=== PATIENT | female | born 1990 | race Caucasian/White ===

== ENCOUNTER 2017-05-12 11:23 | Emergency (ER) | payer OTHER ==
[~2017-05-12] VITALS: Ht 157.5 cm; Wt 74.5 kg
[2017-05-12 11:30] VITALS: Ht 157.5 cm; Wt 74.5 kg
[2017-05-12] MEDS ORDERED: ACETAMINOPHEN 325 MG TAB PO ONE (13:30)
--- NOTE | 2017-05-12 13:45 | ERD ---
ER Documentation Chief Complaint Date/Time DATE: 05/12/17 TIME: 13:38 Chief Complaint DE DIOS and neck pain X 4 months HPI Otherwise healthy 27-year-old female presents to the emergency department complaining of a headache, neck pain, and tingling in her upper extremities. Patient states that she has experienced the headache intermittently for the past 4 months. She states it first occurred when she was working out on a treadmill she suddenly felt a pop and instant pain in the back of her head. She states she did not seek medical attention until now but has continued to feel localized 7 out of 10, sharp, pain to the superior occipital region intermittently. Patient denies any nausea, vomiting, confusion, dizziness or blurred vision. 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 She states she experiences neck pain towards the end of the day and intermittent tingling in her bilateral upper extremities. She also notes occasional tingling in her left lower extremity. She denies any trauma to her head or spine. She denies saddle anesthesia or incontinence. She denies any fever chills, chest pain, or shortness of breath. She is attempted to treat her symptoms with Advil with moderate relief. ROS All systems reviewed and are negative except as per history of present illness. Allergies Allergies: Coded Allergies: No Known Allergy (Unverified , 05/12/17) PMhx/Soc Medical and Surgical Hx: pt denies Medical Hx, pt denies Surgical Hx Hx Alcohol Use: No Hx Substance Use: No Hx Tobacco Use: No Physical Exam Vitals Vital Signs Date Time Temp Pulse Resp B/P Pulse Ox O2 Delivery O2 Flow Rate FiO2 05/12/17 11:30 99.2 108 14 146/82 98 Physical Exam Const: Well-developed, well-nourished, no acute distress Head: Atraumatic, normocephalic, no ecchymosis, edema, or erythema Eyes: Normal Conjunctiva ENT: EOMs intact. PERRLA. Normal External Ears, Nose and Mouth. Neck: Full range of motion..~ No meningismus. No midline cervical spine tenderness Resp: Clear to auscultation bilaterally Cardio: Regular rate and rhythm, no murmurs Abd: Soft, non tender, non distended. Normal bowel sounds Skin: No petechiae or rashes Back: No midline or flank tenderness Ext: Full range of motion at cervical spine, bilateral shoulders, elbows, and wrist. Radial pulses 2+. Distal upper extremities warm and well perfused. Sensation intact to light touch along radial and ulnar aspects of all 5 digits bilaterally. Radial, median, and ulnar motor function intact. Good strength at shoulder elbow and wrist joints. Good mate ship strength. No cyanosis, or edema Neur: Cranial nerves II through XII intact. No pronator drift. Finger to nose intact. Awake and alert Psych: Normal Mood and Affect Results 24 hrs Current Medications Medications (Trade) Dose Ordered Sig/Favio Route PRN Reason Start Time Stop Time Status Last Admin Dose Admin Acetaminophen (Tylenol Tab) 650 mg ONCE ONCE PO 05/12/17 13:30 05/12/17 13:31 DC 05/12/17 13:17 Procedures/MDM PROCEDURE: CT brain without contrast CLINICAL INDICATION: Headache TECHNIQUE: CT of the brain without contrast was performed on a multidetector CT scanner, with multiplanar reformats. One or more of the following dose reduction techniques were used: Automated exposure control, adjustment in mA and / or kV according to patient size, use of iterative reconstructive technique. CTDIvol = 44 mGy; DLP = 630 mGy-cm. COMPARISON: None available FINDINGS: No acute intracranial hemorrhage is identified. No extra-axial fluid collection is seen. There is no mass effect. No midline shift is identified. Ventricles and sulci are within normal limits for size and configuration. The density of the brain is within normal limits. Valladares-white differentiation is preserved. Osseous structures are unremarkable. Mastoid air cells and imaged paranasal sinuses grossly clear. IMPRESSION: Unremarkable noncontrast CT of the brain. RPTAT: VV .Carlton Michelle MD, MD Date Time Electronically viewed and signed by .Carlton Michelle MD, MD on 05/12/2017 13:47 .O/ CC: PHIL LEWIS PA-C This is an otherwise healthy 27-year-old female presents the emergency department for ongoing head pain and neck pain intermittently for the past 4 months. Patient stated concern regarding her initial presentation of the head pain. She states she was exercising when she suddenly felt severe occipital region pain. Patient requested to have a CAT scan performed in the emergency department today. She is well-appearing, nontoxic and in no acute distress. Physical exam without any evidence of neurologic deficit or weakness. Vital signs reviewed and stable upon arrival. Head CT without evidence of any acute abnormality or hemorrhage. History and physical exam consistent with likely tension headache and neck strain with mild cervical radiculopathy likely due to her prolonged positioning while at work. The patient's headache is unlikely related to serious etiology. The patient does not exhibit any clinical signs or symptoms, and has no risk factors to suggest headache etiology such as subarachnoid hemorrhage, acute vertebral or carotid dissection, intracranial mass, epidural, subdural hematoma, dural venous sinus thrombosis, giant cell arteritis, or pseudotumor cerebri. Patient to continue anti-inflammatory medication, begin stretching exercises and continue physical activity. Based on patient's history of present illness and physical examination the decision was made to discharge. The patient was re-evaluated after ED treatment and stabilizing measures, and symptoms have improved. There is no evidence of life threatening injuries or illnesses at this time. On re-examination, patient resting in no distress, stable vital signs, reports feeling better and safe for discharge with outpatient follow up with PMD in 1-2 days. Patient given return precautions. Departure Diagnosis: Primary Impression: Headache Headache type: tension-type Headache chronicity pattern: acute headache Intractability: not intractable Qualified Code: G44.209 - Acute non intractable tension-type headache Additional Impressions: Neck pain Tingling of right upper extremity Tingling of left upper extremity PHIL LEWIS PA-C May 12, 2017 13:45
[2017-05-12] MEDS ORDERED: NAPR-260 PO (13:56)
[2017-05-12] MEDS ORDERED: BUTA1CAP38 PO (13:56)
[2017-05-12] MEDS ORDERED: CYCL5TAB PO (13:56)
== END 2017-05-12 14:09 | disposition home or self-care (01) ==
LOC: FTE 11:23
DX: G44.209 Tension-type headache, unspecified, not intractable (principal); M54.2 Cervicalgia; R20.2 Paresthesia of skin; R10.2 Pelvic and perineal pain
CPT/HCPCS: 70450; Z7502; Z7610

== ENCOUNTER 2017-11-06 13:17 | Emergency (ER) | END 2017-11-06 14:32 | disposition home or self-care (01) ==

== ENCOUNTER 2018-04-20 13:30 | Emergency (ER) | END 2018-04-20 17:38 | disposition home or self-care (01) ==

== ENCOUNTER 2018-06-26 11:28 | Emergency (ER) | END 2018-06-26 15:12 | disposition home or self-care (01) ==

== ENCOUNTER 2018-06-29 21:31 | Emergency (ER) | END 2018-06-30 01:44 | disposition home or self-care (01) ==

== ENCOUNTER 2018-11-24 16:10 | Emergency (ER) | payer OTHER ==
[~2018-11-24] VITALS: Ht 154.9 cm; Wt 76.0 kg
[~2018-11-24 16:10] MED LIST: AZIT250T PO; BUTA1CAP38 PO; CYCL5TAB PO; IBUP-1542 PO; MED4DP PO; NAPR-985 PO; OMEP40CA6 PO; PROM6.2515 PO; RANI150T35 PO
[2018-11-24 16:24] VITALS: BP 142/82; PULSE 85; RESP 18; Ht 154.9 cm; Wt 76.0 kg
[2018-11-24] MEDS ORDERED: MED4DP PO (17:44)
[2018-11-24] MEDS ORDERED: NAPR-985 PO (17:44)
--- NOTE | 2018-11-24 18:27 | ERD ---
ER Documentation Chief Complaint Chief Complaint CP WITH LEFT ARM PAIN X 2 WEEKS, DENIES SOB/DIZZINESS HPI 28 yr old female complaining of chest wall pain and left arm pain times 2 weeks. She states that it is a burning type sensation that runs down her shoulder. She occasionally has some muscle spasms. She has not taken medicine for symptoms. LNMP November 04. Medical history of GERD and anxiety. Surgical history denies. No shortness of breath. NKDA. Social history denies ROS All systems reviewed and are negative except as per history of present illness. Medications Home Meds Active Scripts Naproxen* (Naprosyn*) 500 Mg Tablet, 500 MG PO BID PRN for PAIN AND/OR INFLAMMATION, #30 TAB Prov:JINA MURPHY PA-C 11/24/18 Methylprednisolone* (Medrol* DOSE PACK) 4 Mg/Dose-Pack Tab.ds.pk, 4 MG PO . DIRECTED, #1 PACKET Prov:JINA MURPHY PA-C 11/24/18 Ranitidine Hcl* (Zantac*) 150 Mg Tablet, 150 MG PO BID PRN for EPIGASTRIC PAIN, #30 TAB Prov:CASIE DEGROOT MD 06/26/18 Omeprazole* (Omeprazole*) 40 Mg Capsule.dr, 40 MG PO DAILY, #30 CAP Prov:CASIE DEGROOT MD 06/26/18 Ibuprofen* (Motrin*) 600 Mg Tab, 600 MG PO Q6, #30 TAB Prov:JINA MURPHY PA-C 04/20/18 Promethazine Hcl* (Promethazine Hcl* Syrup) 6.25 Mg/5 Ml Syrup, 12.5 MG PO Q6H PRN for COUGH, #120 ML Prov:SHANTI WATTS 11/06/17 Methylprednisolone* (Medrol* DOSE PACK) 4 Mg/Dose-Pack Tab.ds.pk, 4 MG PO . DIRECTED for 6 Days, PACKET Prov:SHANTI WATTS 11/06/17 Azithromycin* (Zithromax*) 250 Mg Tablet, 250 MG PO .ZPACK DIRECTED, #6 TAB TAKE 500 MG (2 TABS) THE FIRST DAY THEN 250 MG (1 TAB) DAYS 2-5 Prov:SHANTI WATTS 11/06/17 Cyclobenzaprine Hcl* (Cyclobenzaprine Hcl*) 5 Mg Tablet, 5 MG PO Q8H PRN for PAIN, #20 TAB Prov:PHIL LEWISGlenda SHERMAN 05/12/17 Naproxen* (Naprosyn*) 500 Mg Tablet, 500 MG PO BID for 7 Days, TAB Prov:PHIL LEWISGlenda SHERMAN 05/12/17 Eqmegvudcv-Ljotlkzaxlcij-Chkvdeyi* (Fioricet*) 50-300-40 Mg Capsule, 1 CAP PO Q4H PRN for HEADACHE for 10 Days, CAP Prov:PHIL LEWISGlenda SHERMAN 05/12/17 Allergies Allergies: Coded Allergies: No Known Allergy (Unverified , 05/12/17) PMhx/Soc History of Surgery: No Hx Miscellaneous Medical Probl: Yes (GERD ANEMIA) Hx Alcohol Use: No Hx Substance Use: No Hx Tobacco Use: No Smoking Status: Never smoker FmHx Family History: No diabetes, No coronary disease, No other Physical Exam Vitals Vital Signs Date Temp Pulse Resp B/P (MAP) Pulse Ox O2 O2 Flow FiO2 Time Delivery Rate 11/24/18 98.8 85 18 142/82 100 16:24 (102) Physical Exam GENERAL: The patient is well-appearing, well-nourished, in no acute distress HEENT: Atraumatic. Conjunctivae are pink. Pupils equal, round, and reactive to light. There is no scleral icterus. Tympanic membranes clear bilaterally. Oropharynx clear. No nystagmus or photophobia. NECK: C-spine is soft and supple. There is no meningismus. There is no cervical lymphadenopathy. CHEST: Clear to auscultation bilaterally. There are no rales, wheezes or rhonchi. HEART: Regular rate and rhythm. No murmurs, clicks, rubs or gallops. No S3 or S4. EXTREMITIES: Equal pulses bilaterally. There is no peripheral clubbing, cyanosis or edema. No focal swelling or erythema. Full range of motion. Grossly neurovascularly intact. NEUROLOGIC: Alert and oriented. Cranial nerves II through XII intact. Motor strength in all 4 extremities with 5 out of 5 strength. Sensation grossly intact. SKIN: There is no apparent rash or petechiae. The skin is warm and dry. Procedures/MDM DIAGNOSTIC IMAGING REPORT Patient: GLORIA CHRIS : 1990 Age: 28 Sex: F MR #: [id number] DOS: 11/24/18 1702 Ordering MD: FRANCESCA MURPHY PA-C Location: [facility] Room/Bed: PROCEDURE: XR Chest. CLINICAL INDICATION: chest pain TECHNIQUE: Single frontal view of the chest was obtained COMPARISON: 04/20/2018 FINDINGS: The heart and mediastinum are within normal limits. The lungs are clear. There is no pleural effusion or pneumothorax. RPTAT: AA IMPRESSION: No acute disease. EKG: Rate/Rhythm: 70 bpm Normal Sinus Rhythm QRS, ST, T-waves: No changes consistent w/ acute ischemia Impression: No evidence of ischemia or arrhythmia MDM: 28-year-old female presenting with chest wall pain. Patient's exam is non- concerning and vitals are stable. I have low suspicion for cardiac or pulmonary emergency. Patient may be experiencing some nerve impingement and will be discharged with supportive medications. Patient is told if symptoms change or worsen to return immediately to the ER. Patient is recommended to follow-up with primary care. All questions answered discharge. Departure Diagnosis: Primary Impression: Chest pain Condition: Stable Patient Instructions: Chest Pain, Uncertain Cause Referrals: [facility] (PCP) Additional Instructions: FOLLOW UP WITH YOUR PRIMARY CARE PHYSICIAN TOMORROW.Return to this facility if you are not improving as expected. JINA MURPHY PA-C Nov 24, 2018 18:26
== END 2018-11-24 18:00 | disposition home or self-care (01) ==
LOC: FTE 16:10
DX: R07.89 Other chest pain (principal)
CPT/HCPCS: 71045; 93005; Z7502

== ENCOUNTER 2019-01-20 09:02 | Day surgery (SDC) | payer OTHER ==
[~2019-01-20] VITALS: Ht 157.5 cm; Wt 75.7 kg
[2019-01-20] MEDS ORDERED: IRON (09:58)
[2019-01-20] MEDS ORDERED: VITAMIN D (09:58)
[2019-01-20] MEDS ORDERED: LIDOCAINE 4% SOLUTION 50 ML BTL ONE (10:29)
[2019-01-20 10:30] VITALS: Ht 157.5 cm; Wt 75.7 kg
[2019-01-20 10:31] VITALS: BP 102/65; PULSE 90; RESP 20
[2019-01-20 11:05] VITALS: BP 104/67; PULSE 74; RESP 18
[2019-01-20 11:10] VITALS: BP 104/61; PULSE 78; RESP 18
[2019-01-20] MEDS ORDERED: MIDAZOLAM 1 MG/ML 2 ML INJ ONE ×2 (11:13)
[2019-01-20] MEDS ORDERED: FENTAnyl 50 MCG/ML VIAL ONE (11:13)
[2019-01-20 11:28] VITALS: BP 112/74; PULSE 73; RESP 20
== END 2019-01-20 12:46 | disposition home or self-care (01) ==
LOC: GIL 09:02
PROVIDERS: ATTEND Internal Medicine Gastroenterology
DX: K21.0 Gastro-esophageal reflux disease with esophagitis (principal); K64.0 First degree hemorrhoids; K44.9 Diaphragmatic hernia without obstruction or gangrene
CPT/HCPCS: 43239; 45378; 84703; 88305; 88312; 88313; J2250; J3010; Z7610

== ENCOUNTER 2019-01-27 10:28 | Emergency (ER) | payer OTHER ==
[~2019-01-27] VITALS: Wt 89.0 kg
[~2019-01-27 10:28] MED LIST changes: -AZIT250T PO; -BUTA1CAP38 PO; -IBUP-1542 PO; +IRON; -MED4DP PO; -PROM6.2515 PO; +VITAMIN D
--- NOTE | 2019-01-27 12:03 | ERD ---
ER Documentation Chief Complaint Chief Complaint COUGH,CHEST CONGESTION HPI 29-year-old female presents with complaint of cough for the past month. States that she went to a clinic in the beginning of January and they diagnosed with bronchitis and gave her prednisone and an inhaler. However she states that the cough is still bothering her. Denies wheezing, chest pain, shortness of breath, respiratory distress, stridor, fevers, hemoptysis. History of hiatal hernia. She denies allergies. ROS All systems reviewed and are negative except as per history of present illness. Medications Home Meds Active Scripts Dextromethorphan Hb-Promethazine Hcl* (Promethazine DM* Syrup) 473 Ml Syrup, 5 ML PO Q6 PRN for COUGH, #4 OZ Prov:VILLA DO 01/27/19 Ranitidine Hcl* (Zantac*) 150 Mg Tablet, 150 MG PO BID PRN for EPIGASTRIC PAIN, #30 TAB Prov:CASIE DEGROOT MD 06/26/18 Omeprazole* (Omeprazole*) 40 Mg Capsule.dr, 40 MG PO DAILY, #30 CAP Prov:CASIE DEGROOT MD 06/26/18 Cyclobenzaprine Hcl* (Cyclobenzaprine Hcl*) 5 Mg Tablet, 5 MG PO Q8H PRN for PAIN, #20 TAB Prov:PHIL LEWIS PA-C 05/12/17 Naproxen* (Naprosyn*) 500 Mg Tablet, 500 MG PO BID for 7 Days, TAB Prov:PHIL LEWIS PA-C 05/12/17 Reported Medications [Vitamin D] No Conflict Check 01/20/19 [Iron] No Conflict Check 01/20/19 Discontinued Scripts Naproxen* (Naprosyn*) 500 Mg Tablet, 500 MG PO BID PRN for PAIN AND/OR INFLAMMATION, #30 TAB Prov:JINA MURPHY PA-C 11/24/18 Methylprednisolone* (Medrol* DOSE PACK) 4 Mg/Dose-Pack Tab.ds.pk, 4 MG PO . DIRECTED, #1 PACKET Prov:JINA MURPHY PA-C 11/24/18 Ibuprofen* (Motrin*) 600 Mg Tab, 600 MG PO Q6, #30 TAB Prov:JINA MURPHY PA-C 04/20/18 Promethazine Hcl* (Promethazine Hcl* Syrup) 6.25 Mg/5 Ml Syrup, 12.5 MG PO Q6H PRN for COUGH, #120 ML Prov:SHANTI WATTS Mary 11/06/17 Methylprednisolone* (Medrol* DOSE PACK) 4 Mg/Dose-Pack Tab.ds.pk, 4 MG PO . DIRECTED for 6 Days, PACKET Prov:SHANTI WATTS Mary 11/06/17 Azithromycin* (Zithromax*) 250 Mg Tablet, 250 MG PO .ZPACK DIRECTED, #6 TAB TAKE 500 MG (2 TABS) THE FIRST DAY THEN 250 MG (1 TAB) DAYS 2-5 Prov:SHANTI WATTS Mary 11/06/17 Kgjpigzzog-Nyxxojlegjcfc-Pzfraikr* (Fioricet*) 50-300-40 Mg Capsule, 1 CAP PO Q4H PRN for HEADACHE for 10 Days, CAP Prov:PHIL LEWIS PA-C 05/12/17 Allergies Allergies: Coded Allergies: No Known Allergy (Unverified , 01/20/19) PMhx/Soc History of Surgery: No Anesthesia Reaction: No Hx Neurological Disorder: No Hx Respiratory Disorders: Yes (BRONCHITIS TX AND RESOLVED THIS MONTH) Hx Cardiac Disorders: Yes (ANEMIA,CHEST PAIN,PALPITATIONS) Hx Psychiatric Problems: Yes (ANXIETY DISORDER,DEPRESSION) Hx Miscellaneous Medical Probl: Yes (HAD ENDOSCOPY AND COLONOSCOPY BEFORE, [place] H.PYLORI) Hx Alcohol Use: No Hx Substance Use: No Hx Tobacco Use: No FmHx Family History: No diabetes, No coronary disease, No other Physical Exam Vitals Vital Signs Date Temp Pulse Resp B/P (MAP) Pulse Ox O2 O2 Flow FiO2 Time Delivery Rate 01/27/19 98.6 74 18 109/63 99 10:41 (78) Physical Exam Const: No acute distress Head: Atraumatic Eyes: Normal Conjunctiva ENT: Normal External Ears, Nose and Mouth. Neck: Full range of motion. No meningismus. Resp: Clear to auscultation bilaterally Cardio: Regular rate and rhythm, no murmurs Abd: Soft, non tender, non distended. Normal bowel sounds Skin: No petechiae or rashes Back: No midline or flank tenderness Ext: No cyanosis, or edema Neur: Awake and alert Psych: Normal Mood and Affect Results 24 hrs Laboratory Tests Test 01/27/19 12:20 POC Beta HCG, Qualitative NEGATIVE Procedures/MDM PROCEDURE: XR Chest. CLINICAL INDICATION: Cough TECHNIQUE: Single frontal view of the chest was obtained COMPARISON: 11/24/2018 FINDINGS: The heart and mediastinum are within normal limits. The lungs are clear. There is no pleural effusion or pneumothorax. RPTAT: AA IMPRESSION: No acute disease. Electronically Signed By: Maciej Greenberg M.d 01/27/2019 1:06:53 PM MDM: 29-year-old female presents with complaint of cough for the past month. States that she went to a clinic in the beginning of January and they diagnosed with bronchitis and gave her prednisone and an inhaler. However she states that the cough is still bothering her. Denies wheezing, chest pain, shortness of breath, respiratory distress, stridor, fevers, hemoptysis. History of hiatal hernia. She denies allergies. Due to the length of the cough and the patient's desire for chest x-ray, I felt the chest x-ray in this instance would be appropriate. X-ray results within normal limits. I have low suspicion for tubercolosis, pneumonia, pleural effusion, acute heart failure, foreign body aspiration, pulmonary embolism, pneumothorax, or other emergent etiology. Patients O2 sat is normal and is not having difficulty breathing, therefore patient is fit for discharge. Patient discharged with rx for promethazine DM and advised to follow up with PMD. Patient discharged with strict ER precautions. All questions answered at discharge. Departure Diagnosis: Primary Impression: Cough Condition: Stable VILLA DO Jan 27, 2019 12:03
[2019-01-27] MEDS ORDERED: D-ME473S2 PO (12:04)
[2019-01-27 14:42] VITALS: BP 113/59; PULSE 78; RESP 18
== END 2019-01-27 14:44 | disposition home or self-care (01) ==
LOC: FTE 10:28
DX: R05 Cough (principal)
CPT/HCPCS: 71045; 81025; Z7502